=== PATIENT | male | born 1995 | race Caucasian/White ===

== ENCOUNTER 2021-04-29 06:09 | Emergency (ER) | payer OTHER ==
[~2021-04-29] VITALS: Ht 185.4 cm; Wt 87.5 kg
[2021-04-29 06:23] VITALS: BP_SYST 113
--- NOTE | 2021-04-29 06:36 | NUR ---
Patient ambulatory to bed 1 for evaluation
--- NOTE | 2021-04-29 06:50 | NUR ---
DR CORADO TO EXAM ;PT C/O DIARRHEA SINCE MIDNIGHTS ;CRAMPS;STATES ATE CYPRIOT FOODAND HAND LOTS GAS; ON MONITOR AND PULSE OX;
--- NOTE | 2021-04-29 06:53 | NUR ---
PT UP TO BR TO VOID URINE
[2021-04-29] MEDS ORDERED: SIMETHICONE 80 MG TAB.CHEW PO ONE (07:00)
[2021-04-29] MEDS ORDERED: NACL 0.9% 1,000 ML IV ONE (07:00)
[2021-04-29] MEDS ORDERED: DICYCLOMINE HCL 10 MG CAPSULE PO ONE (07:00)
--- NOTE | 2021-04-29 07:07 | NUR ---
URINE TO LAB
--- NOTE | 2021-04-29 07:15 | NUR ---
PT ENDORSED TO KERRI GOLDSMITH
[2021-04-29 07:52] LABS: BASOPHILS % (AUTO) 0.8 % (0.0-2.0); EOSINOPHILS # (AUTO) 0.2 K/uL (0.0-0.4); HEMATOCRIT 42.5 % (36-54); HEMOGLOBIN 14.8 g/dL (14.0-18.0); LYMPHOCYTES # (AUTO) 2.2 K/uL (1.0-5.5); LYMPHOCYTES % (AUTO) 40.2 % (20.5-51.5); MEAN CORPUSCULAR HEMOGLOBIN 32 pg (27-31); MEAN CORPUSCULAR HGB CONC 35 % (32-36); MEAN CORPUSCULAR VOLUME 91 fL (79.0-98.0); MONOCYTES # (AUTO) 0.6 K/uL (0.0-1.0); MONOCYTES % (AUTO) 11.6 % (1.7-9.3); NEUTROPHILS # (AUTO) 2.3 K/uL (1.8-7.7); NEUTROPHILS % (AUTO) 43.4 % (40.0-70.0); PLATELET COUNT (AUTO) 176 K/uL (130-430); RED BLOOD CELL COUNT(AUTO) 4.67 MIL/uL (4.2-6.2); RED CELL DISTRIBUTION WIDTH 12.7 % (9.0-15.0); WHITE BLOOD COUNT (AUTO) 5.4 K/uL (4.8-10.8)
--- NOTE | 2021-04-29 08:00 | NUR ---
Resumed care from KERRI Ellington. Pt AAOx4, VSS, awaiting further evaluation and disposition. Lying in bed with girlfriend at bedside.
[2021-04-29 08:20] LABS: CREATININE 0.88 mg/dL (0.55-1.30); POTASSIUM 3.9 mmol/L (3.5-5.1)
[2021-04-29 08:25] LABS: ALBUMIN 3.9 g/dL (3.4-4.8); TOTAL BILIRUBIN 0.3 mg/dL (0.0-1.0)
[2021-04-29 08:48] VITALS: BP_SYST 147
[2021-04-29] MEDS ORDERED: SIME180C70 PO (09:00)
[2021-04-29] MEDS ORDERED: DICY10CA13 PO (09:02)
--- NOTE | 2021-04-29 09:17 | NUR ---
Pt discharged home stable, walking, with girlfriend
== END 2021-04-29 08:49 | disposition home or self-care (01) ==
LOC: SED 06:09
DX: R10.84 Generalized abdominal pain (principal); R79.89 Other specified abnormal findings of blood chemistry; R19.7 Diarrhea, unspecified; Z79.899 Other long term (current) drug therapy
CPT/HCPCS: 36415; 80053; 83690; 85025; 96360; 99283; J7030